=== PATIENT | female | born 1985 | race Caucasian/White ===

== ENCOUNTER 2017-04-22 13:42 | Emergency (ER) | payer MEDICAID, OTHER ==
[~2017-04-22] VITALS: Ht 157.5 cm; Wt 118.2 kg
[~2017-04-22 13:42] MED LIST: DOXYCYCLINE; IBUP-238 PO; PREN0.01 PO
[2017-04-22 13:44] VITALS: BP 148/75; PULSE 98; RESP 16; TEMP 98; O2SAT 98
[2017-04-22 15:13] VITALS: PULSE 86; RESP 18; O2SAT 97
--- NOTE | 2017-04-22 15:14 | PD ---
HPI Chief Complaint: Respiratory Symptoms Time Seen by Provider: 15:13 Travel History International Travel<30 days: No Contact w/Intl Traveler<30days: No Traveled to known affect area: No History of Present Illness HPI 31-year-old female came to the emergency room with history of cough and congestion. She has history of asthma. Says she has been using her inhaler but the cough is not getting better. This has been going on for past couple days. No history of fever or chills. Her vitals were stable in triage. Patient says she is on her way to [place] where she lives and stopped here because of the cough. [facility] Past Medical History Narrative Medical List of her past medical, surgical, social and family history is reviewed from the nursing note Respiratory: Yes (asthma) ?: Not Social History Tobacco Use: Yes Allergies-Medications (Allergen,Severity, Reaction): Coded Allergies: Azithromycin (Verified Allergy, Severe, 04/22/17) Penicillin (Verified Allergy, Severe, 04/22/17) Sulfa (Verified Allergy, Severe, 04/22/17) Comments List of her allergies reviewed from the nurse's note. Reported Meds & Prescriptions Reported Meds & Active Scripts Active Prednisone 20 Mg Tab 20 Mg PO DAILY 5 Days Reported [Doxycycline] BID Motrin (Ibuprofen) 800 Mg Tab 800 Mg PO Q8HPRN Vit ( Plus) (Prenat Multivit/Development Vice President/Iron/Folic Ac) Tab 1 Tab PO DAILY Narrative Medication List of her home medications reviewed from the nursing note. Review of Systems Except as stated in HPI: all other systems reviewed are Neg Physical Exam Narrative GENERAL: Awake, alert, obese, no obvious distress SKIN: Focused skin assessment warm/dry. HEAD: Atraumatic. Normocephalic. EYES: Pupils equal and round. No scleral icterus. No injection or drainage. ENT: No nasal bleeding or discharge. Mucous membranes pink and moist. NECK: Trachea midline. No JVD. CARDIOVASCULAR: Regular rate and rhythm. No murmur appreciated. RESPIRATORY: No accessory muscle use. Clear to auscultation. Breath sounds equal bilaterally. GASTROINTESTINAL: Abdomen soft, non-tender, nondistended. Hepatic and splenic margins not palpable. MUSCULOSKELETAL: No obvious deformities. No clubbing. No cyanosis. No edema. NEUROLOGICAL: Awake and alert. No obvious cranial nerve deficits. Motor grossly within normal limits. Normal speech. PSYCHIATRIC: Appropriate mood and affect; insight and judgment normal. Data Data Last Documented VS Vital Signs Date Time Temp Pulse Resp B/P Pulse Ox O2 Delivery O2 Flow Rate FiO2 04/22/17 15:26 84 129/88 98 04/22/17 15:13 18 Room Air 04/22/17 13:44 98.0 Orders Prednisone (Deltasone) (04/22/17 15:30) MDM Medical Decision Making Medical Screen Exam Complete: Yes Emergency Medical Condition: Yes Medical Record Reviewed: Yes Differential Diagnosis URI Narrative Course 3:20 PM patient was given a dose of steroid because of her history of asthma. She is not wheezing currently and I'm not giving her any breathing treatment. She'll be discharged home. Procedures EKG Prior to Arrival: No Diagnosis Primary Impression: URI (upper respiratory infection) Qualified Code: J06.9 - Upper respiratory tract infection, unspecified type Referrals: Primary Care Physician Med/Other Pt SpecificInfo: Prescription(s) given Scripts Prednisone 20 Mg Tab20 Mg PO DAILY 5 Days Ref 0 Prov:Eleni Tompkins MD 04/22/17 Disposition: 01 DISCHARGE HOME Condition: Stable Eleni Tompkins MD Apr 22, 2017 15:14
[2017-04-22] MEDS ORDERED: PRED20 PO (15:18)
[2017-04-22 15:26] VITALS: BP 129/88
[2017-04-22] MEDS ORDERED: predniSONE 20 MG TAB PO ONE (15:30)
== END 2017-04-22 15:38 | disposition home or self-care (01) ==
LOC: NEPD 13:42
DX: J06.9 Acute upper respiratory infection, unspecified (principal); J45.909 Unspecified asthma, uncomplicated; Z72.0 Tobacco use
CPT/HCPCS: 99283; J7512